=== PATIENT | female | born 1995 | race African-American/Black ===

== ENCOUNTER 2020-06-18 17:07 | Outpatient (REF) | payer MEDICAID, SELFPAY | END 2020-06-18 17:08 | disposition home or self-care (01) | LOC: HO.LAB 17:07 | PROVIDERS: PCP Family Medicine; Visit Provider Internal Medicine | DX: Z20.828 Contact with and (suspected) exposure to other viral communicable diseases (principal) | CPT/HCPCS: U0003 ==

== ENCOUNTER 2023-04-22 18:55 | Outpatient (REF) | payer MEDICAID, SELFPAY ==
[2023-04-23 03:46] LABS: CT PCR NOT DETECTED (Not Detect.); NG PCR NOT DETECTED (Not Detect.)
[2023-04-23 16:01] LABS: BV Int Neg Control Negative (Negative); BV Int Pos Control Positive (Positive)
== END 2023-04-22 18:56 | disposition home or self-care (01) ==
LOC: HO.HHCLNP 18:55
PROVIDERS: Visit Provider Advanced Practice Midwife
DX: Z11.3 Encounter for screening for infections with a predominantly sexual mode of transmission (principal)
CPT/HCPCS: 0353U; 87480; 87510; 87660

== ENCOUNTER 2023-07-28 13:13 | Outpatient (REF) | payer MEDICAID, SELFPAY ==
[2023-07-29 07:53] LABS: Syphilis Screen Nonreactive (Nonreactive)
[2023-07-29 08:06] LABS: HIV AB/AG Nonreactive (Nonreactive); HIV Num 1 0.05 S/CO (0.00-0.99)
== END 2023-07-28 13:14 | disposition home or self-care (01) ==
LOC: HO.HHCL 13:13
PROVIDERS: Visit Provider Advanced Practice Midwife
DX: Z11.4 Encounter for screening for human immunodeficiency virus [HIV] (principal); Z11.3 Encounter for screening for infections with a predominantly sexual mode of transmission
CPT/HCPCS: 36415; 86780; 87389

== ENCOUNTER 2023-07-29 11:59 | Outpatient (REF) | payer MEDICAID, SELFPAY ==
--- NOTE | ~2023-07-29 | XR_ITS ---
EXAMINATION: XR FOOT, LEFT CLINICAL INFORMATION: Left foot swelling COMPARISON: None available. TECHNIQUE: AP, lateral, and oblique views of the left foot. FINDINGS: Dorsal foot swelling. No radiopaque foreign body. No acute fracture or malalignment. XR/XR foot LT min 3V IMPRESSION: Dorsal foot swelling. No fracture.
== END 2023-07-29 12:00 | disposition home or self-care (01) ==
LOC: HO.HHCX 11:59
PROVIDERS: Visit Provider Family Medicine
DX: R60.0 Localized edema (principal)
CPT/HCPCS: 36415; 73630; 84550; 85025; 85652; 86140

== ENCOUNTER 2023-07-29 12:12 | Outpatient (REF) | payer MEDICAID, SELFPAY ==
[2023-07-29 13:09] LABS: MANUAL DIFF FLAG NO
[2023-07-29 13:22] LABS: Basophils Percent Auto 0.6 % (0-2); Eosinophils Absolute Auto 0.1 X10*3/uL (0.0-0.4); Hematocrit 41.1 % (37.0-47.0); Imm Gran Abs Auto 0.01 X10*3/uL (0.00-0.03); Imm Gran Pct Auto 0.2 % (0.0-0.4); Lymphocytes Percent Auto 40.3 % (20-40); Mean Corpuscular HGB Conc 31.6 g/dl (31.0-35.0); Mean Corpuscular Hemoglobin 27.1 pg (27.0-33.0); Mean Corpuscular Volume 85.6 fL (80.0-98.0); Mean Platelet Volume 11.3 fL (9.4-12.3); Monocytes Absolute Auto 0.4 X10*3/uL (0.1-1.2); Monocytes Percent Auto 7.5 % (2-11); Neutrophils Absolute Auto 2.5 x10*3/uL (2.0-8.3); Neutrophils Percent Auto 49.4 % (45-73); Platelet Count 194 X10*3/uL (160-400); Red Cell Distribution Width 14.1 % (11.0-16.0)
[2023-07-29 14:03] LABS: C Reactive Protein 0.21 mg/dL (< or = 0.50); Uric Acid 5.1 mg/dL (2.4-5.7)
[2023-07-29 14:07] LABS: Erythrocyte Sedimentation Rate 5 MM/HR (0-20)
== END 2023-07-29 12:13 | disposition home or self-care (01) ==
LOC: HO.HHCL 12:12
PROVIDERS: Visit Provider Family Medicine
DX: M79.89 Other specified soft tissue disorders (principal)
CPT/HCPCS: 36415; 84550; 85025; 85652; 86140

== ENCOUNTER 2024-02-24 13:45 | Outpatient (REF) | payer MEDICAID, SELFPAY ==
--- NOTE | ~2024-02-24 | XR_ITS ---
EXAMINATION: XR CHEST 2 VIEW CLINICAL INFORMATION: Cough, fever, left-sided pleuritic chest COMPARISON: None TECHNIQUE: PA and lateral views of the chest obtained. FINDINGS: Consolidation is evident in the retrocardiac left lower lobe. The right lung is clear. There are no pleural effusions. The cardiomediastinal silhouette is normal. XR/XR chest 2V IMPRESSION: Left lower lobe pneumonia. Follow-up is recommended to confirm clearing.
== END 2024-02-24 13:46 | disposition home or self-care (01) ==
LOC: HO.HHCX 13:45
PROVIDERS: Visit Provider Internal Medicine
DX: R05.9 Cough, unspecified (principal); R06.02 Shortness of breath
CPT/HCPCS: 71046

== ENCOUNTER 2024-02-25 10:40 | Outpatient (REF) | payer MEDICAID, SELFPAY ==
[2024-02-25 13:53] LABS: D Dimer High Sensitivity 996 NG/ML
== END 2024-02-25 10:41 | disposition home or self-care (01) ==
LOC: HO.HHCL 10:40
PROVIDERS: Visit Provider Internal Medicine
DX: R05.9 Cough, unspecified (principal)
CPT/HCPCS: 36415; 85379

== ENCOUNTER 2024-04-19 17:32 | Outpatient (REF) | payer MEDICAID, SELFPAY ==
[2024-04-20 03:27] LABS: CT PCR NOT DETECTED (Not Detect.); NG PCR NOT DETECTED (Not Detect.)
== END 2024-04-19 17:33 | disposition home or self-care (01) ==
LOC: HO.HHCLNP 17:32
PROVIDERS: Visit Provider Advanced Practice Midwife
DX: N89.8 Other specified noninflammatory disorders of vagina (principal)
CPT/HCPCS: 87491; 87591

== ENCOUNTER 2024-10-11 12:05 | Outpatient (REF) | payer MEDICAID, SELFPAY ==
--- NOTE | ~2024-10-11 | XR_ITS ---
EXAMINATION: XR WRIST, RIGHT CLINICAL INFORMATION: wrist wrist injury COMPARISON: None available. TECHNIQUE: PA, lateral, and oblique views of the right wrist. FINDINGS: The bones and soft tissues are normal. No fracture. Alignment is anatomic with normal joint spaces. No erosions or abnormal soft tissue calcifications. XR/XR wrist RT min 3V IMPRESSION: Normal right wrist. Electronically signed by: Michael Levy MD 10/11/2024 01:44 PM ARPIT
--- OUTSIDE RECORDS SUMMARY | 2024-10-11 14:59 | XMS_ITS | Encounter Summary ---
Author Organization [employer] Address [address] [facility] [address] [place] [address] Care Team Providers Care Rfid Engineer Name Role Phone Maria L Hooper MD Primary Care Provider Elissa Gabbie OD Unavailable [phone] Reason for Visit * Reason Onset Date Comments triage 08/25/2022 Encounter Details Date Type Department Care Team (Late st Contact Info) Description 08/25/2022 Telephone [facility] [address] [place], [place] [phone] Maira L Hooper MD [address] [place], [place] [phone] triage Social History Tobacco Use Types Packs/Day Years Used Date Smoking Tobacco: Never Assessed Comments Unknown Sex and Gender Information Value Date Recorded Sex Assigned at Female 06/15/2022 10:31 AM EDT Legal Sex Female 10:31 AM EDT Gender Identity Choose not to disclose 8:20 AM EST Sexual Orientation Choose not to disclose 2021 10:31 AM EDT COVID-19 Exposure Response Date Recorded In the last 10 days, have yo u been in contact with someone who was confirmed or suspected to have Coronavirus/COVID-19? No / Unsure 08/27/2022 9:55 AM EST documented as of this encounter Miscellaneous Notes * Telephone Encounter - Angeline Forrester RN - 08/25/2022 3:46 PM EST Triage call with hotel controller ID [id number] Pt reports for a week and a half, vaginal symptoms of bad odor, itchiness, discharge is dark yellowand liquidy. Pt reports thomason with urination due to the area being raw from itching. Scheduled ramónee LEANDRA Lezama 08/27 @ 1000AM . Insurance is verified as active prior to booking. Protocol Used: Vaginal Symptoms (Adult) Protocol-Based Disposition: See in Office or Video Visit within 3 Days Positive Triage Questions: * Vaginal itching and not improved > 3 days following CARE ADVICE * Vaginal odor (bad smell) not improved > 3 days following CARE ADVICE * Patient wants to be seen * All higher-acuity triage questions were negative Care Advice Discussed: * Reassurance and Education - Vaginal Yeast Infection * Genital Hygiene * Antifungal Medicine for Yeast Infection * Antifungal Medicine for Yeast Infection - Extra Notes and Warnings * Expected Course * Reasons To Call Back - Discharge becomes yellow or green - Discharge smells bad - Fever or abdomen pain occur - You become worse. * Telephone Encounter - Gris Rahman - 08/25/2022 2:50 PM EST Symptom: Vaginal Symptoms - Not Bleeding Outcome: Schedule an urgent appointment (within 4 hours) or talk to a nurse or provider soon Reason: Foul-smelling vaginal discharge The caller accepted this outcome documented in this encounter Plan of Treatment Upcoming Encounters Date Type Department Care Team (Late st Contact Info) Description 11/09/2024 1:30 PM EDT Office Visit [facility] [address] [place] [address] Breanne Galeano DDS [address] [place] [address] 01/12/2025 11:00 AM EDT Office Visit [facility] [address] [place] [address] Maria L Hooper MD [address] [place] [address] documented as of this encounter Visit Diagnoses Not on filedocumented in this encounter Care Teams Rfid Engineer Relationship Specialty Start Date End Date Maria L Hooper MD [address] [place] [address] PCP - General Family Medicine 08/16/18 Gabbie Bowers OD [address] [place] [address] Optometry 08/02/24 Pro Ferguson PhD [facility] Psychology 08/20/24 documented as of this encounter
--- OUTSIDE RECORDS SUMMARY | 2024-10-11 14:59 | XMS_ITS | Encounter Summary ---
Author Organization [employer] Address [address] [facility] 7[address] [place] [address] Care Team Providers Care Development Representative Name Role Phone Maria L Hooper MD Primary Care Provider DaikaylieGabbie OD Unavailable [phone] Encounter Details Date Type Department Care Team (Latest Contact Info) Description 04/10/2021 Abstract [facility] CONVERSION[facility] Dental, Provider, DDS Social History Tobacco Use Types Packs/Day Years Used Date Smoking Tobacco: Never Assessed Comments Unknown Sex and Gender Information Value Date Recorded Sex Assigned at Female 06/15/2022 10:31 AM EDT Legal Sex Female 10:31 AM EDT Gender Identity Choose not to disclose 8:20 AM EST Sexual Orientation Choose not to disclose 2021 10:31 AM EDT documented as of this encounter Plan of Treatment Upcoming Encounters Date Type Department Care Team (Late st Contact Info) Description 11/09/2024 1:30 PM EDT Office Visit [facility] [address] [place] [address] Breanne Galeano, DDS [address] [place] [address] 01/12/2025 11:00 AM EDT Office Visit [facility] [address] [place] [address] Maria L Hooper MD [address] [place] [address] documented as of this encounter Visit Diagnoses Not on filedocumented in this encounter Care Teams Development Representative Relationship Specialty Start Date End Date Maria L Hooper MD [address] [place] [address] PCP - General Family Medicine 08/16/18 Gabbie Bowers OD [address] [place] [address] Optometry 08/02/24 Pro Ferguson PhD [facility] Psychology 08/20/24 documented as of this encounter
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
--- OUTSIDE RECORDS SUMMARY | 2024-10-11 15:00 | XMS_ITS | Clinical Summary ---
Author Organization [facility] Address [address] [place] [address] Care Team Providers Care Flexographic Printing Press Operator Name Role Phone Maria L Hooper Primary Care Provider [phone] Allergies No known active allergies Medications * This document contains information received from the source organization and may not represent a complete record from that organization. No known medications Active Problems Problem Noted Date Diagnosed Date Psychotic disorder with delusions 02/17/2022 Bipolar 1 disorder 04/11/2020 Breakthrough bleeding on Nexplanon 01/28/2017 Nexplanon removal 01/28/2017 Social History Tobacco Use Types Packs/Day Years Used Date Smoking Tobacco: Never Assessed Comments Unknown Sex and Gender Information Value Date Recorded Sex Assigned at Not on file Legal Sex Female 7:28 PM EDT Gender Identity Not on file Sexual Orientation Not on file Last Filed Vital Signs Vital Sign Reading Time Taken Comments Blood Pressure 120/74 01/28/2017 2:25 PM EDT Pulse - - Temperature - - Respiratory Rate - - Oxygen Saturation - - Inhaled Oxygen Concentration - - Weight 98.9 kg (218 lb) 01/28/2017 2:25 PM EDT Height - - Body Mass Index - - Plan of Treatment Health Maintenance Due Date Last Done Comments COVID-19 Vaccine ( season) 2024 02/10/2023, 11/22/2020 Influenza Vaccine (#1) 2024 , 05/20/2017, 06/19/2009, Additional history exists Alcohol/Substance Use Screening 08/16/2024 Depression Evaluation 08/16/2024 Social Drivers of Health Annual Screening 08/16/2024 Pap Smear 11/21/2024 11/21/2021 DTaP,Tdap,and Td Vaccines (8 - Td or Tdap) 05/20/2027 05/20/2017, 02/29/2008, 01/04/2001, Additional history exists RSV Vaccine (60+ years old and patients) (1 - 1-dose 75+ series) 2071 Hepatitis B Vaccines Completed 05/17/1997, 1996, 1996 Varicella Vaccines Completed 02/29/2008, 07/26/1997 Hepatitis C Screening Completed 02/10/2023 Pneumococcal Vaccine: Pediatric (0-5 Years) and At-Risk Patients (6-50 Years) Aged Out 02/10/2023 No longer eligible based on patient's age to complete this topic HIV Screening Completed 07/28/2023, 02/10/2023 Insurance Care Teams Flexographic Printing Press Operator Relationship Specialty Start Date End Date [place], Maria L Whiteside [address] [place] [address] PCP - General Family Medicine 02/02/20
--- OUTSIDE RECORDS SUMMARY | 2024-10-11 15:00 | XMS_ITS | Encounter Summary ---
Author Organization [employer] Address [address] [facility] 7t [place] [address] Care Team Providers Care Nail Maker Name Role Phone Maria L Hooper MD Primary Care Provider Gabbie Bowers OD Unavailable [phone] Reason for Visit * Reason Onset Date Comments Appointment 04/07/2023 Encounter Details Date Type Department Care Team ([facility] st Contact Info) Description 04/07/[address] [facility] ADULT DENTAL [address] [place], [place] [phone] Espinoza Posada DDS [address] [place], [place] [phone] Appointment Social History Tobacco Use Types Packs/Day Years Used Date Smoking Tobacco: Some Days Cigarettes Passive Smoke Exposure: Never Smokeless Tobacco: Current Alcohol Use Standard Drinks/Week Comments Never 0 (1 standard drink = 0.6 oz pur e alcohol) Depression Answer Date Recorded Patient Health Questionnaire-9 Score 0 02/10/2023 Depression Answer Date Recorded Patient Health Questionnaire-2 Score 0 02/10/2023 Comments Unknown Sex and Gender Information Value Date Recorded Sex Assigned at Female 06/15/2022 10:31 AM EDT Legal Sex Female 10:31 AM EDT Gender Identity Choose not to disclose 8:20 AM EST Sexual Orientation Choose not to disclose 2021 10:31 AM EDT documented as of this encounter Miscellaneous Notes * Telephone Encounter - Millie Rodgers - 04/07/2023 8:59 AM EDT Patient wants appt scheduled for extraction and an exam on a tooth that has a hole in it. No pain just pressure. 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 The first number listed in chart is the video relay number. DR documented in this encounter Plan of Treatment Upcoming Encounters Date Type Department Care Team (Late st Contact Info) Description 11/09/2024 1:30 PM EDT Office Visit [facility] ADULT DENTAL [address] [place] [address] Yost-Boo, Breanne, DDS [address] [place] [address] 01/12/2025 11:00 AM EDT Office Visit [facility] MEDICINE [address] [place] [address] Maria L Hooper MD [address] [place] [address] documented as of this encounter Visit Diagnoses Not on filedocumented in this encounter Additional Health Concerns Assessment Noted Time PHQ-9 Depression Total Score: 0 02/11/20 23 2:18 PM EDT documented as of this encounter Care Teams Nail Maker Relationship Specialty Start Date End Date Maria L Hooper MD [address] [place] [address] PCP - General Family Medicine 08/16/18 Gabbie Bowers OD [address] [place] [address] Optometry 08/02/24 Pro Ferguson PhD [facility] Psychology 08/20/24 documented as of this encounter
--- OUTSIDE RECORDS SUMMARY | 2024-10-11 15:00 | XMS_ITS | Encounter Summary ---
Author Organization [employer] Address [address] [facility] 7t [place] [address] Care Team Providers Care Literacy Specialist Name Role Phone Maria L Hooper MD Primary Care Provider [phone] Gabbie Bowers OD Unavailable [phone] Encounter Details Date Type Department Care Team (Late Contact Info) Description 09/01/2022 Abstract [facility] [address] [place] [address] Maria L Hooper MD [address] [place], [place] [phone] Social History Tobacco Use Types Packs/Day Years [...] AM EST documented as of this encounter Plan of Treatment Upcoming Encounters Date Type Department Care Team (Late st Contact Info) Description 11/09/2024 1:30 PM EDT Office Visit [facility] [address] [place] [address] YostBreanne Delarosa DDS [address] [place], [place] [phone] 01/12/2025 11:00 AM EDT Office Visit [facility] [address] [place], [place] [phone] Maria L Hooper MD [address] [place], [place] [phone] documented as of this encounter Visit Diagnoses Not on filedocumented in this encounter Care Teams Literacy Specialist Relationship Specialty Start Date End Date Maria L Hooper MD [address] [place], [place] [phone] PCP - General Family Medicine 08/16/18 Gabbie Bowers OD [address] [place] [address] [phone] Optometry 08/02/24 Pro Ferguson PhD [facility] Psychology 08/20/24 documented as of this encounter
--- OUTSIDE RECORDS SUMMARY | 2024-10-11 15:00 | XMS_ITS | Encounter Summary ---
Author Organization [email or web address] Address [address] [place] [address] 7 [place] [address] Care Team Providers Care Terrazzo Mechanic Helper Name Role Phone Rufus, Maria L GOLDMAN Primary Care Provider [phone] Gabbie Bowers OD Unavailable [phone] Reason for Visit * Reason Comments Med Refill Encounter Details Date Type Department Care Team (Late st Contact Info) Description 12/21/2022 Refill [facility] [address] [place] [address] Aixa Lezama, CNM [address] [place] [address] Vaginal discharge Social History Tobacco Use Types Packs/Day Years [...] Description 11/09/2024 1:30 PM EDT Office Visit [facility] ADULT DENTAL [address] [place] [address] Breanne Galeano, DDS [address] [place] [address] 01/12/2025 11:00 AM EDT Office Visit [facility] [address] [place] [address] Maria L Hooper MD [address] [place], [place] [phone] documented as of this encounter Visit Diagnoses Diagnosis Vaginal discharge Leukorrhea, not specified as infective documented in this encounter Care Teams Terrazzo Mechanic Helper Relationship Specialty Start Date End Date Maria L Hooper MD [address] [place], [place] [phone] PCP - General Family Medicine 08/16/18 Gabbie Bowers OD [address] [place] [phone] Optometry 08/02/24 Pro Ferguson PhD [facility] Psychology 08/20/24 documented as of this encounter
--- OUTSIDE RECORDS SUMMARY | 2024-10-11 15:00 | XMS_ITS | Referral Summary ---
Author Organization [facility] Address [address] [place] [address] Care Team Providers Care Head Operator Sulfide Name Role Phone Maria L Hooper Primary Care Provider [phone] Allergies No known active allergies Medications * [...] Mass Index - - Plan of Treatment Not on file [facility] Care Teams Head Operator Sulfide Relationship Specialty Start Date End Date Maria L Hooper [address] [place] [address] PCP - General Family Medicine 02/02/20
--- OUTSIDE RECORDS SUMMARY | 2024-10-11 15:00 | XMS_ITS | Encounter Summary ---
Author Organization [employer] Address [address] [facility] [address] 7t [place] [address] Care Team Providers Care Commercial Insulator Name Role Phone Maria L Hooper MD Primary Care Provider [phone] Elissa Gabbie OD Unavailable [phone] Reason for Visit * Reason Onset Date Comments Nurse Triage 01/07/2024 Encounter Details Date Type Department Care Team ([facility] st Contact Info) Description 01/07/2024 Telephone [facility] [address] [place], [place] [phone] Maria L Hooper MD [address] [place], [place] [phone] Nurse Triage Social History Tobacco Use Types Packs/Day Years [...] encounter Miscellaneous Notes * Telephone Encounter - Jayy Winchester - 01/07/2024 3:19 PM EDT Symptom: Acne - Caller Reports Outcome: Schedule a same-day appointment or talk to a nurse or provider today Reason: Fast-spreading redness The caller accepted this outcome documented in this encounter Plan of Treatment Upcoming Encounters Date Type Department Care Team (Late st Contact Info) Description 11/09/2024 1:30 PM EDT Office Visit [facility] ADULT DENTAL [address] [place] [address] Breanne Galeano, DDS [address] [place] [address] 01/12/2025 11:00 AM EDT Office Visit [facility] MEDICINE [address] [place] [address] Maria L Hooper MD [address] [place] [address] documented as of this encounter Visit Diagnoses Not on filedocumented in this encounter Additional Health Concerns Assessment Noted Time PHQ-9 Depression Total Score: 0 02/11/20 23 2:18 PM EDT documented as of this encounter Care Teams Commercial Insulator Relationship Specialty Start Date End Date Maria L Hooper MD [address] [place] [address] PCP - General Family Medicine 08/16/18 Gabbie Bowers OD [address] [place] [address] Optometry 08/02/24 Pro Ferguson PhD [facility] Psychology 08/20/24 documented as of this encounter
--- OUTSIDE RECORDS SUMMARY | 2024-10-11 15:00 | XMS_ITS | Clinical Summary ---
Author Organization [facility] Address [address] [place] [address] Care Team Providers Care Pediatric Assistant Name Role Phone Unavailable Primary Care Provider Unavailabl e Surgical History Surgery Date Site/Laterality Comments OTHER SURGICAL HISTORY 06/16/16 PROCEDURE: [place] DILATION & CURETTAGE DX&/THER NONOBSTETRIC; COMMENT: after failed elective Medical History Medical History Date Comments Unspecified family circumstance DX:Unspecified family circumstance Unspecified conductive hearing loss DX:Unspecified conductive hearing loss; COMMENT: congenital Allergic rhinitis, cause unspecified 12/20 DX:Allergic rhinitis, cause unspecified; COMMENT: STARTED ON FLONASE Unspecified asthma(493.90) DX:Un specified asthma(493.90); COMMENT: exercise induced Obesity, morbid (CMS/HCC) DX:Obe sity, morbid (HCC); COMMENT: mildly elevated fasting insulin level High blood cholesterol level DX: High blood cholesterol level; COMMENT: LDL 104 Facial palsy DX:Facial palsy Abnormal lead level in blood 2000 DX: Abnormal lead level in blood; COMMENT: resolved Sensorineural hearing loss, infantile onset 12/04/2005 DX:Sensorineural hearing los s, infantile onset; COMMENT: severe profound sensorineuro hearing loss Family History Medical History Relation Name Comments Allergies Brother 1 Diabetes Maternal Grandfather Diabetes Mother Obesity Mother Relation Name Status Comments Brother 1 Brother 2 Alive 08/11/88 Grady Rivers Father Alive 11/21/68 Waqas Osman winter Maternal Grandfather Mother Alive 02/16/70 Cruz Rodriguez Sister Alive 07/08/01 Marya monk Social History Tobacco Use Types Packs/Day Years Used Date Smoking Tobacco: Never Smokeless Tobacco: Never Alcohol Use Standard Drinks/Week Comments No 0 (1 standard drink = 0.6 oz pur e alcohol) Comments Unknown Sex and Gender Information Value Date Recorded Sex Assigned at Not on file Legal Sex Female 4:19 PM EST Gender Identity Not on file Sexual Orientation Not on file Obstetrics History Plan of Treatment Health Maintenance Due Date Last Done Comments Cervical Cancer Screening: Pap Smear 2017 DTaP,Tdap,and Td Vaccines (7 - Td or Tdap) 02/28/2018 02/29/2008, 01/04/2001, 04/11/1998, Additional history exists Cholesterol Screening (Lipid Panel) 09/14/2023 Depression Screening 09/14/2023 HIV Screening 09/14/2023 Hepatitis C Screening 09/14/2023 Social Influencers of Health Screening 09/14/2023 COVID-19 Vaccine ( season) 2024 Influenza Vaccine (#1) 2024 06/19/2009, 2008 Hepatitis B Vaccines Completed 05/17/1997, 1996, 1996 HIB Vaccines Completed 11/01/1997, 01/15, 1996, Additional history exists IPV Vaccines Completed 01/04/2001, 10/14, 02/08/1997, Additional history exists MMR Vaccines Completed 04/05/2001, 11/01/1997 Varicella Vaccines Completed 02/29/2008, 07/26/1997 Meningococcal ACWY Vaccine Completed 02/26/2015, HPV Vaccines Aged Out No longer eligi ble based on patient's age to complete this topic Hepatitis A Vaccines Aged Out No long er eligible based on patient's age to complete this topic Meningococcal B Vacine Aged Out No lo nger eligible based on patient's age to complete this topic Pneumococcal Vaccine: Pediatrics (0 to 5 Years) and At-Risk Patients (6 to 64 Years) Aged Out No longer eligible based on patient's age to complete this topic RSV Immunization Patients Under 20 months Aged Out No longer eligible based on patient's age to complete this topic
--- OUTSIDE RECORDS SUMMARY | 2024-10-11 15:00 | XMS_ITS | Encounter Summary ---
Author Organization [employer] Address [address] [facility] 7t [place] [address] Care Team Providers Care Nurses Director Name Role Phone Maria L Hooper MD Primary Care Provider Elissa Gabbie OD Unavailable [phone] Reason for Visit * Reason Onset Date Comments Medication Question 12/29/2022 Encounter Details Date Type Department Care Team ([facility] st Contact Info) Description 12/29/2022 Telephone [facility] MED[facility]INE [address] [place], [place] [phone] Maria L Hooper MD [address] [place], [place] [phone] Medication Question Social History Tobacco Use Types Packs/Day Years [...] encounter Miscellaneous Notes * Telephone Encounter - Jolanta Meza - 12/29/2022 1:16 PM EDT Tc from pharmacy calling in regards to script for metroNIDAZOLE (Flagyl) 500 MG tablet. States there's different directions and quantity doesn't match the directions. Please advise. documented in this encounter Plan of Treatment Upcoming Encounters Date Type Department Care Team (Late st Contact Info) Description 11/09/2024 1:30 PM EDT Office Visit [facility] ADULT DENTAL [address] [place] [address] Ritika-Breanne Boo, DDS [address] [place] [address] 01/12/2025 11:00 AM EDT Office Visit [facility] MEDICINE [address] [place] [address] Maria L Hooper MD [address] [place] [address] documented as of this encounter Visit Diagnoses Not on filedocumented in this encounter Care Teams Nurses Director Relationship Specialty Start Date End Date Maria L Hooper MD [address] [place] [address] PCP - General Family Medicine 08/16/18 Gabbie Bowers OD [address] [place] [address] [phone] Optometry 08/02/24 Pro Ferguson PhD [facility] Psychology 08/20/24 documented as of this encounter
== END 2024-10-11 12:06 | disposition home or self-care (01) ==
LOC: HO.HHCX 12:05
PROVIDERS: Visit Provider Family Medicine
DX: M25.531 Pain in right wrist (principal); M25.431 Effusion, right wrist
CPT/HCPCS: 73110

== ENCOUNTER → 2024-10-11 12:05 | Outpatient (BNV) | payer MEDICAID, SELFPAY | PROVIDERS: Visit Provider Radiology Diagnostic Radiology | DX: M25.531 Pain in right wrist (principal); M25.431 Effusion, right wrist | CPT/HCPCS: 73110 ==

== ENCOUNTER 2024-12-08 12:01 | Outpatient (REF) | payer MEDICAID, SELFPAY ==
--- OUTSIDE RECORDS SUMMARY | 2024-12-08 12:54 | XMS_ITS | Encounter Summary ---
Author Organization [employer] Address [address] [facility] 7t [place] [address] Care Team Providers Care Chief Crew Scheduler Name Role Phone Maria L Hooper MD Primary Care Provider Elissa Gabbie OD Unavailable Reason for Visit * Reason Onset Date Comments triage 08/25/2022 Encounter Details Date Type Department Care Team (Late st Contact Info) Description 08/25/2022 Telephone [facility] [address] [place], [place] [phone] Maria L Hooper MD [address] [place], [place] [phone] triage Social History Tobacco Use Types Packs/Day [...] 08/25/2022 3:46 PM EST Triage call with grounds caretaker ID [id number] Pt reports for a week [...] Care Team (Late st Contact Info) Description 12/21/2024 2:30 PM EDT Office Visit [facility] [address] [place] [address] TarkaGabbie, OD [address] [place] [address] 01/05/2025 1:30 PM EDT Office Visit [facility] ADULT [facility] [address] [place] [address] Ritika-BooBreanne plummer, DDS [address] [place] [address] 01/12/2025 11:00 AM EDT Office Visit [facility] [address] [place] [address] Maria L Hooper MD [address] [place] [address] 05/22/2025 1:00 PM EDT Office Visit [facility] [address] [place], [place] [phone] Citlaly Sharpe documented as of this encounter Visit Diagnoses Not on filedocumented in this encounter Care Teams Chief Crew Scheduler Relationship Specialty Start Date End Date Maria L Hooper MD [address] [place], [place] [phone] PCP - General Family Medicine 08/16/18 Gabbie Bowers OD [address] [place] [address] [phone] Optometry 08/02/24 Pro Ferguson PhD [facility] Psychology 08/20/24 documented as of this encounter
--- OUTSIDE RECORDS SUMMARY | 2024-12-08 12:54 | XMS_ITS | Clinical Summary ---
Author Organization [facility] Address [address] [place] [address] Care Team Providers Care Pipe Turner Name Role Phone Maria L Hooper Primary Care Provider [phone] Allergies No known active allergies Medications * [...] COVID-19 Vaccine ( season) 2024 02/10/2023, 11/22/2020 Alcohol/Substance Use Screening 08/16/2024 Depression Screening and Follow-Up 08/16/2024 Social Drivers of Health Annual Screening 08/16/2024 Pap Smear 11/21/2024 11/21/2021 Influenza Vaccine (Season Ended) 2025 05/22/2021, 05/20/2017, 06/19/2009, Additional history exists DTaP,Tdap,and Td Vaccines (8 - Td or [...] complete this topic HIV Screening Completed 07/28/2023, 07/16, 02/10/2023, Additional history exists Insurance Care Teams Pipe Turner Relationship Specialty Start Date End Date RufusMaria L wills [address] [place] [address] PCP - General Family Medicine 02/02/20
--- OUTSIDE RECORDS SUMMARY | 2024-12-08 12:54 | XMS_ITS | Clinical Summary ---
Author Organization [employer] Address [address] [place] [address] Care Team Providers Care Pharmacy Billing Adjudicator Name Role Phone Unavailable Primary Care Provider Unavailabl e Surgical History Surgery Date Site/Laterality Comments OTHER SURGICAL HISTORY 06/16/16 PROCEDURE: [place] DILATION & CURETTAGE DX&/THER NONOBSTETRIC; COMMENT: after failed elective Medical History Medical History Date Comments Unspecified family circumstance DX:Unspecified family circumstance Unspecified conductive hearing loss DX:Unspecified conductive hearing loss; COMMENT: congenital Allergic rhinitis, cause unspecified 12/20 DX:Allergic rhinitis, cause unspecified; COMMENT: STARTED ON FLONASE Unspecified asthma(493.90) DX:Un specified asthma(493.90); COMMENT: exercise induced Obesity, morbid (CMS/HCC V24 , CMS/HCC V28) DX:Obesity, morbid ([facility]); CO MMENT: mildly elevated fasting insulin level High blood [...] 08/11/88 Grady Rivers Father Alive 11/21/68 Waqas winter Maternal Grandfather Mother Alive 02/16/70 Cruz [...] COVID-19 Vaccine ( season) 2024 Influenza Vaccine (Season Ended) 2025 06/19/2009, 06/19/2009 Hepatitis B Vaccines Completed 05/17/1997, 1996, 1996 [...] age to complete this topic Meningococcal B Vaccine Aged Out No l onger eligible based on patient's age to complete this topic Pneumococcal Vaccine: Pediatrics (0 to 5 Years) and At-Risk Patients (6 to 64 Years) Aged Out No longer eligible based on patient's age to complete this topic RSV Immunization Patients Under 20 months Aged Out No longer eligible based on patient's age to complete this topic
--- OUTSIDE RECORDS SUMMARY | 2024-12-08 12:54 | XMS_ITS | Encounter Summary ---
Author Organization [employer] Address [address] [facility] 7t [place] [address] Care Team Providers Care Outbound Sales Agent Name Role Phone Marai L Hooper MD Primary Care Provider Elissa Gabbie OD Unavailable [phone] Reason for Visit * Reason Onset Date Comments Medication Question 12/29/2022 Encounter Details Date Type Department Care Team ([facility] st Contact Info) Description 12/29/2022 Telephone [facility] [address] [place], [place] [phone] Maria L Hooper MD [address] [place], [place] [phone] Medication Question Social History Tobacco Use Types [...] Description 12/21/2024 2:30 PM EDT Office Visit [facility] OPT[facility] [address] [place] [address] Gabbie Bowers OD [address] [place] [address] 01/05/2025 1:30 PM EDT Office Visit [facility] ADULT DENT[facility] [address] [place] [address] Yost-Boo, Breanne, DDS [address] [place] [address] 01/12/2025 11:00 AM EDT Office Visit [facility] [address] [place] [address] Maria L Hooper MD [address] [place] [address] 05/22/2025 1:00 PM EDT Office Visit [facility] ADULT DENT[facility] [address] [place] [address] Citlaly Sharpe documented as of this encounter Visit Diagnoses Not on filedocumented in this encounter Care Teams Outbound Sales Agent Relationship Specialty Start Date End Date Maria L Hooper MD [address] [place] [address] PCP - General Family Medicine 08/16/18 Gabbie Bowers, AUGUST[place] [address] [place] [address] Optometry 08/02/24 Pro Ferguson PhD [facility] Psychology 08/20/24 documented as of this encounter
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
--- OUTSIDE RECORDS SUMMARY | 2024-12-08 12:54 | XMS_ITS | Encounter Summary ---
Author Organization [employer] Address [address] [place] [address] 7t [place] [address] Care Team Providers Care Director Of Medical Staff Services Name Role Phone Maria L Hooper MD Primary Care Provider [phone] Gabbie Bowers OD Unavailable [phone] Reason for Visit * Reason Comments Med Refill Encounter Details Date Type Department Care Team (Late st Contact Info) Description 12/21/2022 Refill [facility] MEDICINE [address] [place] [address] Aixa Lezama, LEANDRA [address] [place] [address] Vaginal discharge Social History Tobacco Use Types [...] Description 12/21/2024 2:30 PM EDT Office Visit [facility] OPTOMETRY [address] [place] [address] Gabbie Bowers, OD [address] [place] [address] 01/05/2025 1:30 PM EDT Office Visit [facility] ADULT DENTAL [address] [place] [address] Breanne Galeano, DDS [address] [place] [address] 01/12/2025 11:00 AM EDT Office Visit [facility] MEDICINE [address] [place] [address] Maria L Hooper MD [address] [place] [address] 05/22/2025 1:00 PM EDT Office Visit [facility] ADULT DENTAL [address] [place] [address] Citlaly Sharpe documented as of this encounter Visit Diagnoses Diagnosis Vaginal discharge Leukorrhea, not specified as infective documented in this encounter Care Teams Director Of Medical Staff Services Relationship Specialty Start Date End Date Maria L Hooper MD [address] [place] [address] PCP - General Family Medicine 08/16/18 Gabbie Bowers OD [address] [place] [address] [phone] Optometry 08/02/24 Pro Ferguson PhD [facility] Psychology 08/20/24 documented as of this encounter
--- OUTSIDE RECORDS SUMMARY | 2024-12-08 12:54 | XMS_ITS | Encounter Summary ---
Author Organization [employer] Address [address] [facility] 7t [place] [address] Care Team Providers Care Grain Combiner Name Role Phone Maria L Hooper MD Primary Care Provider [phone] Gabbie Bowers OD Unavailable [phone] Encounter Details Date Type Department Care Team (Late Contact Info) Description 09/01/2022 Abstract [facility] MEDICINE [address] [place] [address] Maria L Hooper MD [address] [place], [place] [phone] Social History Tobacco Use Types Packs/Day Years [...] Description 12/21/2024 2:30 PM EDT Office Visit [facility] OPTOMETRY [address] [place], [place] [phone] Gabbie Bowers, OD [address] [place] [address] 01/05/2025 1:30 PM EDT Office Visit [facility] ADULT DENTAL [address] [place] [address] Yost-Boo, Breanne, DDS [address] [place] [address] 01/12/2025 11:00 AM EDT Office Visit [facility] MEDICINE [address] [place] [address] Maria L Hooper MD [address] [place] [address] 05/22/2025 1:00 PM EDT Office Visit [facility] ADULT DENTAL [address] [place] [address] Citlaly Sharpe documented as of this encounter Visit Diagnoses Not on filedocumented in this encounter Care Teams Grain Combiner Relationship Specialty Start Date End Date Maria L Hooper MD [address] [place] [address] PCP - General Family Medicine 08/16/18 Gabbie Bowers OD [address] [place] [address] Optometry 08/02/24 Pro Ferguson PhD [facility] Psychology 08/20/24 documented as of this encounter
--- OUTSIDE RECORDS SUMMARY | 2024-12-08 12:54 | XMS_ITS | Encounter Summary ---
Author Organization [employer] Address [address] [facility] [address] 7[address] [place] [address] Care Team Providers Care Smelter Operator Name Role Phone Maria L Hooper MD Primary Care Provider [phone] Elissa Gabbie OD Unavailable [phone] Reason for Visit * Reason Onset Date Comments Nurse Triage 01/07/2024 Encounter Details Date Type Department Care Team ([facility] st Contact Info) Description 01/07/2024 Telephone [facility] MEDICINE [address] [place], [place] [phone] Maria L Hooper MD [address] [place], [place] [phone] Nurse Triage Social History Tobacco Use Types [...] Description 12/21/2024 2:30 PM EDT Office Visit [facility] OPTOMETRY [address] [place] [address] Gabbie Bowers, OD [address] [place] [address] 01/05/2025 1:30 PM EDT Office Visit [facility] ADULT DENTAL [address] [place] [address] Breanne Galeano DDS [address] [place] [address] 01/12/2025 11:00 AM EDT Office Visit [facility] MEDICINE [address] [place] [address] Maria L Hooper MD [address] [place] [address] 05/22/2025 1:00 PM EDT Office Visit [facility] ADULT DENTAL [address] [place], [place] [phone] Citlaly Sharpe documented as of this encounter Visit Diagnoses Not on filedocumented in this encounter Additional Health Concerns Assessment Noted Time PHQ-9 Depression Total Score: 0 02/11/20 23 2:18 PM EDT documented as of this encounter Care Teams Smelter Operator Relationship Specialty Start Date End Date Maria L Hooper MD [address] [place] [address] PCP - General Family Medicine 08/16/18 Gabbie Bowers OD [address] [place] [address] Optometry 08/02/24 Pro Ferguson PhD [facility] Psychology 08/20/24 documented as of this encounter
--- OUTSIDE RECORDS SUMMARY | 2024-12-08 12:54 | XMS_ITS | Referral Summary ---
Author Organization [facility] Address [address] [place] [address] Care Team Providers Care Office Analyst Name Role Phone Maria L Hooper Primary Care Provider [phone] Allergies No known active allergies Medications * [...] Plan of Treatment Not on file [facility] Care Teams Office Analyst Relationship Specialty Start Date End Date Maria L Hooper [address] [place] [phone] PCP - General Family Medicine 02/02/20
--- OUTSIDE RECORDS SUMMARY | 2024-12-08 12:54 | XMS_ITS | Encounter Summary ---
Author Organization [employer] Address [address] [facility] 7t [place] [address] Care Team Providers Care Quiller Hand Name Role Phone Maria L Hooper MD Primary Care Provider Gabbie Bowers OD Unavailable [phone] Reason for Visit * Reason Onset Date Comments Appointment 04/07/2023 Encounter Details Date Type Department Care Team ([facility] st Contact Info) Description 04/07/2023 Telephone [facility] ADULT DENTAL [address] [place], [place] [phone] Espinoza Posada DDS [address] [place], [place] [phone] Appointment Social History Tobacco Use Types Packs/Day [...] Description 12/21/2024 2:30 PM EDT Office Visit [facility] OPTOMETRY [address] [place] [address] Gabbie Bowers OD [address] [place] [address] 01/05/2025 1:30 PM EDT Office Visit [facility] ADULT DENTAL [address] [place] [address] Breanne Galeano DDS [address] [place] [address] 01/12/2025 11:00 AM EDT Office Visit [facility] MEDICINE [address] [place] [address] Maria L Hooper MD [address] [place] [address] 05/22/2025 1:00 PM EDT Office Visit [facility] ADULT DENTAL [address] [place] [address] Citlaly Sharpe documented as of this encounter Visit Diagnoses Not on filedocumented in this encounter Additional Health Concerns Assessment Noted Time PHQ-9 Depression Total Score: 0 02/11/20 23 2:18 PM EDT documented as of this encounter Care Teams Quiller Hand Relationship Specialty Start Date End Date Maria L Hooper MD [address] [place] [address] PCP - General Family Medicine 08/16/18 Gabbie Bowers OD [address] [place] [address] Optometry 08/02/24 Pro Ferguson PhD [facility] Psychology 08/20/24 documented as of this encounter
--- OUTSIDE RECORDS SUMMARY | 2024-12-08 12:54 | XMS_ITS | Encounter Summary ---
Author Organization [employer] Address [address] [place] [address] [address]t [place] [address] Care Team Providers Care Drafter Structural Name Role Phone Maria L Hooper MD Primary Care Provider [phone] Gabbie Bowers OD Unavailable [phone] Encounter Details Date Type Department Care Team (Latest Contact Info) Description 04/10/2021 Abstract [facility] CONVERSIONS Dental, Provider, DDS Social History Tobacco [...] 12/21/2024 2:30 PM EDT Office Visit [facility] OPTOMETRY [address] [place], [place] [phone] Gabbie Bowers, OD [address] [place] [address] 01/05/2025 1:30 PM EDT Office Visit [facility] ADULT DENTAL [address] [place] [address] Yost-BooBreanne plummer, DDS [address] [place] [address] 01/12/2025 11:00 AM EDT Office Visit [facility] MEDICINE [address] [place] [address] Maria L Hooper MD [address] [place] [address] 05/22/2025 1:00 PM EDT Office Visit [facility] ADULT DENTAL [address] [place], [place] [phone] Citlaly Sharpe documented as of this encounter Visit Diagnoses Not on filedocumented in this encounter Care Teams Drafter Structural Relationship Specialty Start Date End Date Maria L Hooper MD [address] [place], [place] [phone] PCP - General Family Medicine 08/16/18 Gabbie Bowers OD [address] [place] [address] [phone] Optometry 08/02/24 Pro Ferguson PhD [facility] Psychology 08/20/24 documented as of this encounter
[2024-12-08 13:41] LABS: Estimated Average Glucose 111 mg/dL; Hemoglobin A1C 120.3657 umol/L; Hemoglobin A1c % 5.5 % (<6.0); Total Hemoglobin (HGBA1C) 3288.6872 umol/L
[2024-12-08 13:45] LABS: Alanine Aminotransferase 23 U/L (0-31); Alkaline Phosphatase 65 U/L (39-117); Anion Gap 8 (12-20); Aspartate Amino Transferase 30 U/L (5-31); Bilirubin Direct 0.2 mg/dL (0.0-0.5); Bilirubin Total 0.5 mg/dL (0.0-1.0); Blood Urea Nitrogen 8 mg/dL (9-16); Carbon Dioxide 23 mmol/L (22-29); Chloride 113 mmol/L (96-108); Cholesterol 149 mg/dL (<200); Estimated Glomerular Filt Rate > 60; Glucose Random 105 mg/dL (60-115); HDL Cholesterol 59 mg/dL (>40); LDL Cholesterol Calculated 84 mg/dL (<100); Potassium 3.7 mmol/L (3.3-5.1); Sodium 140 mmol/L (135-145); Total Protein 6.6 g/dL (6.5-8.0); Triglycerides 30 mg/dL (<150)
[2024-12-08 14:07] LABS: HIV AB/AG Nonreactive (Nonreactive); HIV Num 1 0.07 S/CO (0.00-0.99); ~HepC Num1 0.08 S/CO (0.00-0.79); ~Hepatitis C Antibody Nonreactive (Nonreactive)
[2024-12-08 14:08] LABS: Syphilis Screen Nonreactive (Nonreactive)
[2024-12-08 14:12] LABS: TSH reflex Free T4 0.54 uIU/mL (0.32-4.0)
== END 2024-12-08 12:02 | disposition home or self-care (01) ==
LOC: HO.HHCL 12:01
PROVIDERS: Visit Provider Family Medicine
DX: E66.813 Obesity, class 3 (principal); E66.01 Morbid (severe) obesity due to excess calories; Z68.41 Body mass index [BMI] 40.0-44.9, adult; Z11.3 Encounter for screening for infections with a predominantly sexual mode of transmission
CPT/HCPCS: 36415; 80048; 80061; 80076; 83036; 84443; 86780; 86803; 87389

== ENCOUNTER 2025-03-13 11:55 | Outpatient (REF) | payer MEDICAID, SELFPAY ==
--- NOTE | ~2025-03-13 | XR_ITS ---
EXAMINATION: XR CHEST CLINICAL INFORMATION: ongoing cough ,r/o pneumonia COMPARISON: February 24, 2024 TECHNIQUE: 2 views of the chest were obtained. FINDINGS: No significant abnormality is noted involving the heart, lungs, mediastinum, bony thorax or soft tissues. XR/XR chest 2V IMPRESSION: Unremarkable examination. Electronically signed by: Dustin Savage MD 03/13/2025 12:17 PM EDT RP
--- OUTSIDE RECORDS SUMMARY | 2025-03-13 12:53 | XMS_ITS | Clinical Summary ---
Author Organization [employer] Address [address] [facility] 7t [place] [address] Care Team Providers Care Corporate Travel Expert Name Role Phone Maria L Hooper MD Primary Care Provider [phone] Elissa Gabbie OD Unavailable [phone] Allergies No known active allergies Medications etonogestrel-elut ing (Nexplanon) 68 mg contraceptive implant Inject 68 mg under the skin. New implant placed 03/2024 6 Active ARIPiprazole (Abilify) 15 MG tabletIndications :Bipolar 1 disorder (CMS/HCC) Take 15 mg by mouth Once per day. Active traZODone (Desyrel) 100 MG tabletIndications :Bipolar 1 disorder (CMS/HCC) Take 100 mg by mouth at bedtime. Active Sodium Fluoride (PreviDent 5000 Plus) 1.1 % cream Apply 1 mg to teeth 3 times daily. 1 g 3 5 Active escitalopram (Lexapro) 10 MG tabletIndications :Bipolar 1 disorder (CMS/HCC) Take 1 tablet (10 mg) by mouth Once per day. 30 tablet 5 Active azithromycin (Zithromax) 250 MG tabletIndications :Cough, unspecified type Take 2 tablets (500 mg) by mouth Once per day for 1 day, THEN 1 tablet (250 mg) Once per day for 4 days. 6 tablet 5 03/18/20 25 Active guaiFENesin (Mucinex) 600 MG 12 hr tabletIndications :Cough, unspecified type Take 1 tablet (600 mg) by mouth 2 times daily for 7 days. Do not crush, chew, or split. 14 tablet 5 03/20/20 25 Active albuterol 108 (90 Base) MCG/ACT inhalerIndication s:Cough, unspecified type Inhale 2 puffs every 6 (six) hours if needed for wheezing. 18 g 1 5 03/13/20 26 Active metroNIDAZOLE (Metrogel) 0.75 % vaginal gelIndications:Va ginal discharge Insert 1 Application. into the vagina at bedtime for 5 doses. One applicator in the vagina every night x 5 nights 70 g 5 03/18/20 25 Active fluconazole (Diflucan) 150 MG tabletIndications :Vaginal discharge Take 1 tablet (150 mg) by mouth 1 (one) time for 1 dose. 1 tablet 5 03/13/20 25 Active Active Problems Problem Noted Date Diagnosed [...] of 36.0 to 36.9 in adult 09/06/2024 Tobacco dependence 08/01/2024 Foot pain, bilateral [...] months Other specified health status 02/10/2023 Overview (01/12/2025): -next comprehensive annual evaluation due after 02/11/2024. -eye care facilitated by [facility], last eye visit was 01/2022. -dental home is [facility] dental with Dr. Doran. -health care proxy Assessment & Plan (02/10/2023 3:22 PM EDT): -next physical exam due after 02/11/2024. -eye care facilitated by [facility], last eye visit was 01/2022. -dental home is [facility] dental with Dr. Doran. 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[place] Assessment & Plan (11/10/2023 4:16 PM EDT): -[place] Islander Signa Language/ educational interpreter needed for all visits -Has services with [employer], [place] [facility] [employer] [facility] [employer] [facility] [employer] [facility] -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[place] Assessment & Plan (02/10/2023 11:10 AM EDT): -[place] Islander Signa Language/ educational interpreter needed for all visits -Has services with [employer], [place] [facility] [place] [...] Problem Noted Date Diagnosed Date Resolved Date Exercise counseling 09/06/2024 01/13/20 25 Dietary counseling 09/06/2024 5 Swelling of left foot 07/28/20232023 Overview (07/28/2023): [...] with the plan Nexplanon insertion 02/10/2023 02/16/20 23 Overview (02/15/2023): Reviewed normal side effects and [...] Encounters Date Type Department Care Team Description 03/13/2025 11:00 AM EDT Office Visit [facility] [address] [place] [address] Vaginal discharge (Primary Dx); Cough, unspecified type 03/13/2025 Travel 01/31/2025 9:30 AM EDT Office Visit [facility] OPTOMETRY [address] [place], [place] [phone] Regular astigmatism, bilateral (Primary Dx) 01/31/2025 Travel 01/12/2025 Telephone [facility] [address] [place] [address] Maria L Hooper MD Appointment Request 01/12/2025 Telephone [facility] [address] [place] [phone] Maria L Hooper MD No Show 01/11/2025 Telephone [facility] [address] [place] [phone] Maria L Hooper MD Chart Prep 01/10/2025 11:30 AM EDT Office Visit [facility] ADULT DENT[facility] [address] [place] [address] Yost-Boo , Breanne, DDS Dental caries (Primary Dx); Dental abscess; Symptomatic irreversible pulpitis 01/10/2025 Telephone [facility] [address] [place] [address] Yost-Boo , Breanne, DDS patient is deaf needs vri 01/04/2025 Patient Outreach [facility] [address] [place] [phone] Maria L Hooper MD Pre-visit Planning (LVM) 01/01/2025 Telephone [facility] [address] [place] [phone] Maria L Hooper MD Results 01/01/[address] [address] Maria L Hooper MD 12/21/2024 2:30 PM EDT Office Visit [facility] [address] [place] [phone] Gabbie Bowers, OD Regular astigmatism, bilateral (Primary Dx); Amblyopia suspect, bilateral 12/21/2024 Travel from Last 3 Months Immunizations Immunization Administration Dates Next Due DTaP 01/04/2001, 8,02/08/1997,10/16,1996 HPV 9-Valent 02/10/2023 Hep B, Adolescent or Pediatric 05/17/1997,1996,1996 Hib (HbOC) 11/01/1997, 7,1996,09/12 IPV 01/04/2001 Influenza injectable quadriv alent preservative free 05/22/2021,05/20/2017 Influenza, IIV3, injectable 06/19/2009 Tosha SARS-CoV-2 Vaccination 11/22/2020 MMR 04/05/2001,11/01/1997 Meningococcal MCV4P [id number]-135 02/26/2015,05/29/20 09 Novel [id number], preservative-free 06/19/2009 OPV, Trivalent 02/08/1997,1996,1996 Pfizer Covid-19 [...] Sign Reading Time Taken Comments Blood Pressure 120/58 03/13/2025 11:16 AM EDT Pulse 76 03/13/2025 11:16 AM EDT Temperature 36.2 C (97.1 F) 03/13/2025 11:16 AM EDT Respiratory Rate 20 03/13/2025 11:16 AM EDT Oxygen Saturation 99% 03/13/2025 11:16 AM EDT Inhaled Oxygen Concentration - - Weight 93.6 kg (206 lb 6.4 oz) 03/13/2025 11:16 AM EDT Height 167.6 cm (5' 6 ) 03/13/2025 11:16 AM EDT Body Mass Index 33.31 03/13/2025 11:16 AM EDT Plan of Treatment Upcoming Encounters Date Type Department Care Team (Late st Contact Info) Description 05/22/2025 1:00 PM EDT Office Visit [facility] [address] [place] [address] Citlaly Sharpe Health Maintenance Due Date Last Done Comments Disability Screening 1996 Alcohol/Substance Use Screening 2008 Dental Prophylaxis 10/12/2021 04/10/2021, 09/28/2017 HPV Vaccines (2 - 3-dose series) 03/10/2023 02/10/2023 Depression Screening 02/11/2024 02/10/2023, 02/11/20 23 COVID-19 Vaccine ( season) 2024 02/10/2023, 01/16/2022, 11/22/2020 SDOH Screening 11/09/2024 11/10/2023 Pap Smear 11/21/2024 11/21/2021, 11/21/2021 Influenza Vaccine (#1) 2025 , 05/20/2017, 06/19/2009, Additional history exists Family Planning (PISQ) 04/19/2025 04/19/2024 Dental Oral Exam 05/13/2025 11/09/2024, , 06/30/2017 Dental X-Ray: Bitewings 01/11/2026 01/11/20 25, 11/09/2024, 04/10/2021, Additional history exists Tobacco Screening 03/13/2026 03/13/2025 DTaP/Tdap/Td Vaccines (8 - Td or Tdap) 05/20/2027 05/20/2017, 02/29/2008, 01/04/2001, Additional history exists Dental X-Ray: Full Mouth 11/11/2027 025, 01/15/2023, 04/10/2021, Additional history exists Lipid Panel 12/08/2029 12/08/2024, 01/15, 05/22/2021, Additional history exists Zoster Vaccines (1 of 2) 2046 RSV Patients and Patients Aged 60 years or older (1 - 1-dose 75+ series) 2071 Hepatitis B Vaccines Completed 05/17/1997, 1996, 1996 HIB Vaccines Completed 11/01/1997, 10/14, 02/08/1997, Additional history exists IPV Vaccines Completed 01/04/2001, 10/14, 02/08/1997, Additional history exists Meningococcal Vaccine Completed 02/26/2015, 009 Pneumococcal Vaccine: Pediatrics (0 to 5 Years) and At-Risk Patients (6 to 49) Years Completed 02/10/2023 HIV Screening Completed 12/08/2024, 07/16, 02/10/2023, Additional history exists Hepatitis C Screening Completed 12/08/2024 , 02/10/2023, 05/22/2021, Additional history exists Hepatitis A Vaccines Aged [...] Procedure Name Priority Date/Time Associated Diagnosis Comments POCT INFLUENZA B (ID NOW RAPID MOLECULAR) Routine 03/13/2025 11:42 AM EDT Cough, unspecified type POCT INFLUENZA A (ID NOW RAPID MOLECULAR) Routine 03/13/2025 11:41 AM EDT Cough, unspecified type POCT RAPID COVID ANTIGEN Routine 03/13/2025 11:23 AM EDT Cough, unspecified type XR CHEST 2 VIEWS Routine 03/13/2025 11:1 7 AM EDT Cough, unspecified type CASE PRESENTATION, DETAILED AND EXTENSIVE TREATMENT PLANNING Routine 01/10/2025 11:30 AM EDT Dental caries Dental abscess Symptomatic irreversible pulpitis BITEWING - SINGLE RADIOGRAPHIC IMAGE Routine 01/10/2025 11:30 AM EDT Dental caries Dental abscess Symptomatic irreversible pulpitis INTRAORAL - PERIAPICAL FIRST RADIOGRAPHIC IMAGE Routine 01/10/2025 11:30 AM EDT Dental caries Dental abscess Symptomatic irreversible pulpitis PALLIATIVE (EMERGENCY) TREATMENT OF DENTAL PAIN - MINOR PROCEDURE Routine 01/10/2025 11:30 AM EDT Dental caries Dental abscess Symptomatic irreversible pulpitis HEPATITIS C AB W/REFL TO HCV RNA, QN, PCR Routine 12/08/2024 12:04 PM EDT Screening examination for STI HIV 1/2 ANTIGEN/ANTIBODY, FOURTH GENERATION W/RFL Routine 12/08/2024 12:04 PM EDT Screening examination for STI LIPID PANEL, STANDARD Routine 12/08/2024 12:04 PM EDT Class 3 severe obesity due to excess calories without serious comorbidity with body mass index (BMI) of 40.0 to 44.9 in adult INTRAORAL - COMPLETE SERIES OF RADIOGRAPHIC IMAGES Routine 11/09/2024 1:30 PM EDT PERIODIC ORAL EVALUATION - ESTABLISHED PATIENT Routine 11/09/2024 1:30 PM EDT PAP SMEAR Routine 11/21/2021 12:00 AM EDT PROPHYLAXIS - ADULT Routine 04/10/2021 1 2:00 AM EDT from Last 3 Months or Most Recently Relevant to Health Maintenance Results * POCT Rapid Influenza B NASSAR ID NOW (03/13/2025 11:42 AM EDT) Influenza B Negative Negative, Indeterminate [facility] QC Media Lot # [id number] [facility] Lot# Expiration Date [facility] Swab 03/13/2025 11:4 2 AM EDT Iza Valles MD POINT OF CARE DEANNA T ENTER/EDIT ORDERABLES Final Result Performing Organization Address [facility] Co de Phone Number [facility] [address] [place] [phone] * POCT Rapid Influenza A NASSAR ID NOW (03/13/2025 11:41 AM EDT) Pathologist [facility] Influenza A Negative Negative, Indeterminate [facility] QC Media Lot # [id number] [facility] Lot# Expiration Date [facility] Swab 03/13/2025 11:4 1 AM EDT Iza Valles MD POINT OF CARE DEANNA T ENTER/EDIT ORDERABLES Final Result Performing Organization Address [facility] de Phone Number [facility] [address] [place] [phone] * POCT Rapid Covid-19 BinaxNOW (03/13/2025 11:23 AM EDT) Rapid COVID Ag Negative QC Media Lot # [id number] Lot# Expiration Date Swab 03/13/2025 11:2 3 AM EDT Iza Valles MD POINT OF CARE DEANNA T ENTER/EDIT ORDERABLES Final Result * XR Chest 2 Views (03/13/2025 11:17 AM EDT) Anatomical Region Laterality Modality Chest Radiographic Lauren ging 03/13/2025 11:1 7 AM EDT Narrative 03/13/2025 12:21 PM EDT [address] [address] XRay Report Signed Patient: Federico Rivers MR#: [id number] : 1995 Acct:[id number] Age/Sex: 29 / F ADM Date: 03/13/25 Loc: [facility] Attending Dr: Iza Valles MD Ordering Physician: Iza Ramon MD Date of Service: 03/13/25 Procedure(s): XR chest 2V Accession Number(s): [id number] cc: Iza Ramon MD EXAMINATION: XR CHEST CLINICAL INFORMATION: ongoing cough ,r/o pneumonia COMPARISON: February 24, 2024 TECHNIQUE: 2 views of the chest were obtained. FINDINGS: No significant abnormality is noted involving the heart, lungs, mediastinum, bony thorax or soft tissues. XR/XR chest 2V IMPRESSION: Unremarkable examination. Electronically signed by: Dustin Savage MD 03/13/2025 12:17 PM EDT Dictated By: Dustin Savage MD Signed By: <Electronically signed by Dustin Savage MD in OV> 03/13/25 1217 DD/ 1117 TD/TT: 03/13/25 1120 Skidder Operator: Procedure Note Donotuseinterpreter, Image - 03/13/[address] [address] XRay Report Signed Patient: Ingrid RiversR#: [id number] : 1995Acct:[id number] Age/Sex: 29 / FADM Date: 03/13/25 Loc: JESS Attending Dr: Iza Valles MD Ordering Physician: Iza Ramon MD Date of Service: 03/13/25 Procedure(s): XR chest 2V Accession Number(s): [id number] cc: Iza Ramon MD EXAMINATION: XR CHEST CLINICAL INFORMATION: ongoing cough ,r/o pneumonia COMPARISON: February 24, 2024 TECHNIQUE: 2 views of the chest were obtained. FINDINGS: No significant abnormality is noted involving the heart, lungs, mediastinum, bony thorax or soft tissues. XR/XR chest 2V IMPRESSION: Unremarkable examination. Electronically signed by: Dustin Savage MD 03/13/2025 12:17 PM EDT RP Dictated By: Dustin Savage MD Signed By: <Electronically signed by Dustin Savage MD in OV> 03/13/25 1217 DD/ 1117 TD/TT: 03/13/25 1120 Skidder Operator: us Iza Valles MD IMG XR PROCEDURES Final Result * Hepatitis C Antibody with Reflex to HCV, RNA, Quantitative, Real-Time PCR (12/08/2024 12:04 PM EDT) Hepatitis C Antibody Nonreactive Nonreactive [facility] Comment:Antibodies to HCV no t detected; does not exclude early acuteHCV infection. Blood Venous blood specimen / Unknown 12/08/2024 12:04 PM EDT 12/08/2024 12:57 PM EDT us Maria L Hooper MD LAB BLOOD ORDERABLES Final Result [facility] [address] [place] [phone] * HIV-1/2 Antigen and Antibodies, Fourth Generation, with Reflexes (12/08/2024 12:04 PM EDT) HIV AB/AG Nonreactive Nonreactive [facility] Comment:HIV-1 p24 Ag and/or HIV-1/HIV-2 Ab not detected.A test result that is nonreactive does not exclude thepossibility of exposure to or infection with HIV-1 and/orHIV-2. Nonreactive results in this assay for individualswith prior exposure to HIV-1 and/or HIV-2 may be due toantigen and antibody levels that are below the limit ofdetection of this assay.The [employer] HIV Ag/Ab Combo assay result andsupplemental assay results should be interpreted inconjunction with the patient's clinical presentation,history and other laboratory results. If the results areinconsistent with clinical evidence, additional testing issuggested to confirm the result. Blood Venous blood specimen / Unknown 12/08/2024 12:04 PM EDT 12/08/2024 12:57 PM EDT Maria L Hooper MD LAB BLOOD ORDERABLES Final Result [facility] [address] [place] [phone] * Lipid Panel, Standard (12/08/2024 12:04 PM EDT) Triglycerides 30 <150 mg/dL [facility] Comment:Desirable Triglyceri de: less than 150 mg/dLBorderline High Triglyceride 150-199 mg/dLHigh Triglyceride: 200-499 mg/dLVery High Triglyceride: greater than or equal to 5OO mg/dL Cholesterol 149 <200 mg/dL [facility] Comment:Desirable Cholestero l: less than 200 mg/dLBorderline High Cholesterol: 200-239 mg/dLHigh Cholesterol: greater than 239 mg/dL LDL Cholesterol Calculated 84 <100 mg/dL [facility] Comment:Desirable LDL: less than 100 mg/dLNear Optimal/Above Optimal LDL: 110- 129 mg/dLBorderline High LDL: 130-159 mg/dLHigh LDL: 160-189 mg/dLVery High LDL: greater than or equal to 190 mg/dL HDL Cholesterol 59 >40 mg/dL [facility] Comment:Desirable HDL: great er than 40 mg/dL Note: This HDL assay may give artificially low results in patients with liver disease. Blood Venous blood specimen / Unknown 12/08/2024 12:04 PM EDT 12/08/2024 1:06 PM EDT Maria L Hooper MD LAB BLOOD ORDERABLES Final Result [facility] [address] [place] [phone] * Pap Smear (11/21/2021 12:00 AM EDT) Swab Maria L Hooper MD LAB CYTOLOGY ORDERABLES Fi nal Result [facility] [address] [facility], [place] [address] from Last 3 Months or Most Recently Relevant to Health Maintenance Insurance [facility] STANDARD DENTAL-[facility] MEDICAID STAND ADULT Care Teams Corporate Travel Expert Relationship Specialty Start Date End Date [place], MD Maria L [address] [place] [phone] PCP - General Family Medicine 08/16/18 Gabbie Bowers OD [address] [place] [phone] Optometry 08/02/24 Pro Ferguson PhD [facility] Psychology 08/20/24
--- OUTSIDE RECORDS SUMMARY | 2025-03-13 12:53 | XMS_ITS | Clinical Summary ---
Author Organization [facility] Address [address] [place] [address] Care Team Providers Care School Child Care Attendant Name Role Phone Unavailable Primary Care Provider Unavailabl e Surgical History Surgery Date Site/Laterality Comments OTHER SURGICAL HISTORY 06/16/16 PROCEDURE: OK DILATION & CURETTAGE DX&/THER NONOBSTETRIC; COMMENT: after failed elective Medical History Medical History Date Comments Unspecified family circumstance DX:Unspecified family circumstance Unspecified conductive hearing loss DX:Unspecified conductive hearing loss; COMMENT: congenital Allergic rhinitis, cause unspecified 12/20 DX:Allergic rhinitis, cause unspecified; COMMENT: STARTED ON FLONASE Unspecified asthma(493.90) DX:Un specified asthma(493.90); COMMENT: exercise induced Obesity, morbid (CMS/HCC V24 , CMS/HCC V28) DX:Obesity, morbid ([facility]); CO MMENT: mildly elevated fasting insulin level [...] history exists Cholesterol Screening (Lipid Panel) 09/14/2023 HIV Screening 09/14/2023 Hepatitis C Screening 09/14/2023 Social Influencers of Health Screening 09/14/2023 COVID-19 Vaccine ( season) 2024 Depression Screening 08/16/2024 Influenza Vaccine (#1) 2025 06/19/2009, 2008 Hepatitis B Vaccines Completed 05/17/1997, [...] 5 Years) and At-Risk Patients (6 to 49 Years) Aged Out No longer eligible based on patient's age to complete this topic RSV Immunization Patients Under 20 months Aged Out No longer eligible based on patient's age to complete this topic
--- OUTSIDE RECORDS SUMMARY | 2025-03-13 12:53 | XMS_ITS | Clinical Summary ---
Author Organization [facility] Address [address] [place] [address] Care Team Providers Care Shanker Out Name Role Phone Maria L Hooper Primary Care Provider [phone] Allergies No known active allergies Medications * [...] 08/16/2024 Pap Smear 11/21/2024 11/21/2021 Influenza Vaccine (#1) 2025 , 05/20/2017, 06/19/2009, Additional history exists DTaP,Tdap,and Td [...] 02/10/2023, Additional history exists Insurance Care Teams Shanker Out Relationship Specialty Start Date End Date RufusMaria L wills [address] [place] [phone] PCP - General Family Medicine 02/02/20
[2025-03-14 04:47] LABS: Bacterial Vaginosis PCR POSITIVE (Negative); Candida Group PCR DETECTED (Not Detect); Candida glab krusei PCR NOT DETECTED (Not Detect); Trichomonas vaginalis PCR DETECTED (Not Detect)
[2025-03-14 05:09] LABS: CT PCR NOT DETECTED (Not Detect.); NG PCR NOT DETECTED (Not Detect.)
== END 2025-03-13 11:56 | disposition home or self-care (01) ==
LOC: HO.HHCX 11:55
PROVIDERS: Visit Provider Student in an Organized Health Care Education/Training Program
DX: Z11.3 Encounter for screening for infections with a predominantly sexual mode of transmission (principal); Z11.8 Encounter for screening for other infectious and parasitic diseases; N89.8 Other specified noninflammatory disorders of vagina; R05.9 Cough, unspecified
CPT/HCPCS: 71046; 81515; 87491; 87591

== ENCOUNTER → 2025-03-13 11:55 | Outpatient (BNV) | payer MEDICAID, SELFPAY | PROVIDERS: Visit Provider Radiology Diagnostic Radiology | DX: R05.3 Chronic cough (principal) | CPT/HCPCS: 71046 ==